=== PATIENT | male | born 1995 | race Two or more races ===

== ENCOUNTER 2022-10-22 17:35 | Emergency (ER) | payer OTHER ==
[~2022-10-22] VITALS: Ht 182.9 cm; Wt 104.3 kg
[2022-10-22] MEDS ORDERED: DECADRON4 MG PO (21:33)
[2022-10-22] MEDS ORDERED: AMRIX15 MG PO (21:33)
== END 2022-10-22 23:07 | disposition home or self-care (01) ==
LOC: ER 17:35
DX: M54.2 Cervicalgia (principal); Z88.0 Allergy status to penicillin